=== PATIENT | female | born 1990 ===

== ENCOUNTER 2017-06-16 13:27 | Emergency (ER) | payer SELFPAY ==
--- NOTE | 2017-06-16 14:46 | UC ---
Lower Extremity/Ankle HPI - HPI Summary HPI Summary: Patient twisted right foot and ankle when she fell down stairs this morning has been able to weight-bear but is painful - History of Current Complaint Chief Complaint: UCLowerExtremity Stated Complaint: RT ANKLE INJURY Time Seen by Provider: 06/16/17 14:43 Hx Obtained From: Patient ?: No Onset/Duration: Sudden Onset, Lasting Hours Severity Initially: Moderate Severity Currently: Moderate Aggravating Factor(s): Standing, Ambulation Alleviating Factor(s): Rest, Elevation Able to Bear Weight: Yes - Allergies/Home Medications Allergies/Adverse Reactions: Allergies Allergy/AdvReac Type Severity Reaction Status Date / Time cephalexin [From Keflex] Allergy See Comment Verified 06/16/17 14:43 Sulfa (Sulfonamide Allergy See Comment Verified 06/16/17 14:43 Antibiotics) Home Medications: Home Medications Acetaminophen TAB* [Tylenol TAB*] 2 tab PO Q4H PRN 06/16/17 [History Confirmed 06/16/17] DULoxetine DR CAP* [Cymbalta CAP*] 120 mg PO DAILY 06/16/17 [History Confirmed 06/16/17] Meclizine TAB* [Antivert 12.5 TAB*] 12.5 mg PO TID PRN 06/16/17 [History Confirmed 06/16/17] clonazePAM TAB(*) [Klonopin TAB(*)] 0.5 mg PO TID PRN 06/16/17 [History Confirmed 06/16/17] l-Norgest/E.estradiol-E.estrad [Seasonique 0.15-0.03-0.01 Tab] 1 each PO DAILY 06/16/17 [History Confirmed 06/16/17] PMH/Surg Hx/FS Hx/Imm Hx Previously Healthy: No Psychological History: Anxiety - Family History Known Family History: Positive: None - Social History Occupation: Employed Full-time Lives: With Family Alcohol Use: None Substance Use Type: None Smoking Status (MU): Never Smoked Tobacco Review of Systems Constitutional: Negative Skin: Negative Eyes: Negative ENT: Negative Respiratory: Negative Cardiovascular: Negative Gastrointestinal: Negative Genitourinary: Negative Motor: Negative Neurovascular: Negative Musculoskeletal: Arthralgia - right lateral ankle pain Neurological: Negative Psychological: Negative Is Patient Immunocompromised?: No All Other Systems Reviewed And Are Negative: Yes Physical Exam Triage Information Reviewed: Yes Appearance: Well-Appearing, No Pain Distress, Well-Nourished Vital Signs Reviewed: Yes Eye Exam: Normal Eyes: Positive: Conjunctiva Clear ENT Exam: Normal ENT: Positive: Normal ENT inspection, Hearing grossly normal, TMs normal, Uvula midline. Negative: Nasal congestion, Nasal drainage, Trismus, Muffled voice, Hoarse voice, Dental tenderness, Sinus tenderness Dental Exam: Normal Neck exam: Normal Neck: Positive: Supple, Nontender, No Lymphadenopathy Respiratory Exam: Normal Respiratory: Positive: Chest non-tender, Lungs clear, Normal breath sounds, No respiratory distress, No accessory muscle use Cardiovascular Exam: Normal Cardiovascular: Positive: RRR, No Murmur, Pulses Normal, Brisk Capillary Refill Musculoskeletal Exam: Other Musculoskeletal: Positive: Strength Intact, ROM Intact, Edema @ - lateral right foot Neurological Exam: Normal Neurological: Positive: Alert, Muscle Tone Normal Psychological Exam: Normal Skin Exam: Normal Diagnostics - Laboratory Diagnostic Studies Completed/Ordered: avulsion fx base of 5th metacarpal - Radiology No standard instances Xray Interpretation: Positive (See Comments) - avulsion fx of right 5th metacarpal base Lower Extremity Course/Dx - Course Course Of Treatment: Cam boot, crutches rest ice and elevation Tylenol ibuprofen for pain hydrocodone for more severe pain. Off work until cleared by orthopedic doctor - Differential Dx/Diagnosis Provider Diagnoses: Avulsion fracture right fifth metatarsal base Discharge - Sign-Out/Discharge Documenting (check all that apply): Discharge/Admit/Transfer - Discharge Plan Condition: Stable Disposition: HOME Prescriptions: Hydrocodone/Acetaminophen [Hydrocodone-Acetamin 5-325 mg] 1 each PO QID PRN #12 tablet MDD 304 PRN Reason: Pain - Mild To Moderate Ibuprofen TAB* [Motrin TAB* 600 MG] 600 mg PO Q6H PRN #30 tab PRN Reason: pain Patient Education Materials: Crutch Instructions (ED), Foot Fracture in Adults (ED), R.I.C.E. Treatment (ED), Avulsion Fracture (ED) Forms: *Work Release Referrals: Catracho Contreras MD [Medical Doctor] - 3 Days - Billing Disposition and Condition Condition: STABLE Disposition: HOME
[2017-06-16 14:48] VITALS: BP 112/75
--- NOTE | 2017-06-16 15:16 | RAD ---
INDICATION: Right ankle injury. TECHNIQUE: 3 views of the right ankle were obtained. FINDINGS: There is lateral soft tissue swelling. The bones are normal alignment. There is a nondisplaced fracture at the base of the fifth metatarsal. No other fractures are seen. Joint spaces appear maintained. IMPRESSION: NONDISPLACED FRACTURE BASE OF THE FIFTH METATARSAL.
--- NOTE | 2017-06-16 15:18 | RAD ---
INDICATION: Right foot injury. TECHNIQUE: 3 views of the right foot were obtained. FINDINGS: There is diffuse soft tissue swelling. The bones are normal alignment. There is a nondisplaced fracture at the base of the fifth metatarsal which is better seen on the ankle films. No other fractures are seen. IMPRESSION: NONDISPLACED FRACTURE BASE OF THE FIFTH METATARSAL.
[2017-06-16] MEDS ORDERED: Ibuprofen TAB* 600 MG PO ONE (15:25)
== END 2017-06-16 16:00 | disposition home or self-care (01) ==
LOC: UCCORT 13:27
DX: S92.351A Displaced fracture of fifth metatarsal bone, right foot, initial encounter for closed fracture (principal); W10.9XXA Fall (on) (from) unspecified stairs and steps, initial encounter; Y93.9 Activity, unspecified; Y92.9 Unspecified place or not applicable; Z88.1 Allergy status to other antibiotic agents; Z88.2 Allergy status to sulfonamides
CPT/HCPCS: 99213; A9270-GY; G0463

== ENCOUNTER 2019-01-17 10:15 | Emergency (ER) | payer BC ==
[2019-01-17 11:12] VITALS: BP 133/99
--- NOTE | 2019-01-17 12:05 | UC ---
Respiratory Complaint HPI - HPI Summary HPI Summary: Pt presents with c/o nasal congestion, cough, generalized malaise, X 5 days. Pt 's and son both have similar symptoms. - History of Current Complaint Chief Complaint: UCRespiratory Stated Complaint: SORE THROAT CONGESTION FATIGUE COUGH Time Seen by Provider: 01/17/19 11:50 Hx Obtained From: Patient Hx Last Menstrual Period: 12/21/18 ?: No Onset/Duration: Gradual Onset, Lasting Days, Still Present Timing: Constant Severity Initially: Mild Severity Currently: Mild Pain Intensity: 0 Character: Cough: Productive - clear sputum Aggravating Factors: Deep Breaths, Recumbent Position Alleviating Factors: Nothing Associated Signs And Symptoms: Positive: URI, Nasal Congestion - Risk Factors Pulmonary Embolism Risk Factors: Negative Cardiac Risk Factors: Negative Pseudomonas Risk Factors: Negative Tuberculosis Risk Factors: Negative - Allergies/Home Medications Allergies/Adverse Reactions: Allergies Allergy/AdvReac Type Severity Reaction Status Date / Time cephalexin [From Keflex] Allergy See Comment Verified 01/17/19 11:07 Sulfa (Sulfonamide Allergy See Comment Verified 01/17/19 11:07 Antibiotics) Home Medications: Home Medications ALPRAZolam TAB* [Xanax TAB*] 0.5 mg PO BID PRN 01/17/19 [History Confirmed 01/17] traZODone TAB* [Desyrel TAB*] 100 mg PO BEDTIME PRN 01/17/19 [History Confirmed 01/17/19] PMH/Surg Hx/FS Hx/Imm Hx Previously Healthy: Yes - Surgical History Surgical History: Yes Surgery Procedure, Year, and Place: - Family History Known Family History: Positive: Cardiac Disease - Social History Occupation: Employed Full-time Lives: With Family Alcohol Use: Occasionally Substance Use Type: None Smoking Status (MU): Never Smoked Tobacco Have You Smoked in the Last Year: No - Immunization History Vaccination Up to Date: Yes Review of Systems All Other Systems Reviewed And Are Negative: Yes Constitutional: Positive: Chills, Fatigue Skin: Positive: Negative Eyes: Positive: Negative ENT: Positive: Sore Throat, Nasal Discharge, Sinus Congestion Respiratory: Positive: Cough Cardiovascular: Positive: Negative Gastrointestinal: Positive: Negative Genitourinary: Positive: Negative Motor: Positive: Negative Neurovascular: Positive: Negative Musculoskeletal: Positive: Myalgia Neurological: Positive: Negative Psychological: Positive: Negative Is Patient Immunocompromised?: No Physical Exam - Summary Physical Exam Summary: Pt is 6 months post Triage Information Reviewed: Yes Appearance: Well-Appearing Vital Signs: Initial Vital Signs Temp 96.9 F 01/17/19 11:09 Pulse 88 01/17/19 11:09 Resp 16 01/17/19 11:09 BP 133/99 01/17/19 11:09 Pulse Ox 100 01/17/19 11:09 Vital Signs Reviewed: Yes ENT: Positive: Nasal congestion, TM bulging - bilateral Dental Exam: Normal Neck exam: Normal Respiratory Exam: Normal Respiratory: Positive: Chest non-tender, Lungs clear, Normal breath sounds Cardiovascular Exam: Normal Musculoskeletal Exam: Normal Neurological Exam: Normal Psychological Exam: Normal Skin Exam: Normal Respiratory Course/Dx - Differential Dx/Diagnosis Differential Diagnosis/HQI/PQRI: Bronchitis, Influenza, Sinusitis Provider Diagnosis: Viral syndrome Discharge ED - Sign-Out/Discharge Documenting (check all that apply): Patient Departure All imaging exams completed and their final reports reviewed: No Studies - Discharge Plan Condition: Stable Disposition: HOME Prescriptions: Benzonatate CAP* [Tessalon 100 MG CAP*] 100 mg PO Q8H PRN #30 cap PRN Reason: Cough Guaifenesin/Pseudoephedrne HCl [Mucinex D ER 600-60 mg Tablet] 1 each PO Q12H # 14 tab.er.12h predniSONE TAB* [Deltasone 10 MG TAB*] 30 mg PO DAILY #12 tab Patient Education Materials: Viral Syndrome (ED) Referrals: Tierney Gonzalez MD [Primary Care Provider] - If Needed - Billing Disposition and Condition Condition: STABLE Disposition: Home
== END 2019-01-17 12:14 | disposition home or self-care (01) ==
LOC: UCCORT 10:15
DX: J02.9 Acute pharyngitis, unspecified (principal); M79.10 Myalgia, unspecified site; R68.83 Chills (without fever); R09.81 Nasal congestion; R05 Cough; R53.81 Other malaise; R53.83 Other fatigue; Z88.1 Allergy status to other antibiotic agents; Z88.2 Allergy status to sulfonamides
CPT/HCPCS: 99212; G0463